=== PATIENT | female | born 1985 | race Hispanic/Latino ===

== ENCOUNTER 2022-05-08 19:14 | Emergency (ER) | payer MEDICAID ==
[2022-05-08] MEDS ORDERED: Sodium Chloride 0.9% 1000 ML 1,000 ML IV STA (20:08)
[2022-05-08 20:12] VITALS: O2SAT 100
[2022-05-08 20:18] LABS: Appearance SLIGHTLY CLOUDY (CLEAR)
[2022-05-08 20:19] LABS: Bilirubin NEGATIVE (NEGATIVE); Dipstick done @ ? MAIN LAB; Glucose NEGATIVE (NEGATIVE); Ketones NEGATIVE (NEGATIVE); Nitrite NEGATIVE (NEGATIVE); Ph 8.5 (5-6); Protein,Urine Dip TRACE (Negative); RBC LARGE Ery/ul (0-5); Urobilinogen 0.2 mg/dL (0-1)
[2022-05-08] MEDS ORDERED: Sodium Chloride 0.9% 1000 ML 1,000 ML ONE (20:19)
--- NOTE | 2022-05-08 20:20 | ERPHSYRPT ---
- History of Present Illness Time Seen by Provider: 05/08/22 20:10 Historian: patient, family, production superintendent hydro Patient Subjective Stated Complaint: pt states bleeding for 7 days Triage Nursing Assessment: pt ambulated into the er; pt is axo x4; c/o vaginal bleeding; pt states 2/10 pain to lower abd; hyperactive bowel sounds in all quads; vitals wnl; denies N/V/D Physician History: Patient is a 36-year-old female who presents with her daughter who acts as production superintendent hydro who presents with a complaint of vaginal bleeding and passage of clots for 7 days. Her control method consist of Depo shot. She is due in 2 months for another shot and bleeding is been very unusual for her Timing/Duration: day(s) (7) Activities at Onset: none Quality: cramping Pain Radiation: no radiation Severity of Pain-Max: moderate Severity of Pain-Current: moderate Previous symptoms: no prior history Allergies/Adverse Reactions: No Known Drug Allergies Allergy (Unverified 05/08/22 19:58) Home Medications: No Reportable Medications [No Reported Medications] 05/08/22 [History] Hx Tetanus, Diphtheria Vaccination/Date Given: No (unknown) Hx Influenza Vaccination/Date Given: No Hx Pneumococcal Vaccination/Date Given: No Travel Risk - International Travel Have you traveled outside of the country in past 3 weeks: No - Coronavirus Screening Are you exhibiting any of the following symptoms?: Yes Symptoms: Fever Close contact with a COVID-19 positive Pt in past 14-21 Days: Yes - Vaccine Status Have you recieved a Covid-19 vaccination: No (unknown) Coat Baster: Unknown - Vaccination Dates Dates if Unknown: unknown - Review of Systems Constitutional: No Fever, No Chills Eyes: No Symptoms Ears, Nose, & Throat: No Symptoms Respiratory: No Cough, No Dyspnea Cardiac: No Chest Pain, No Edema, No Syncope Abdominal/Gastrointestinal: No Abdominal Pain, No Nausea, No Vomiting, No Diarrhea Genitourinary Symptoms: Vaginal Bleeding, No Dysuria Musculoskeletal: No Back Pain, No Neck Pain Skin: No Rash Neurological: No Dizziness, No Focal Weakness, No Sensory Changes Psychological: No Symptoms Endocrine: No Symptoms All Other Systems: Reviewed and Negative - Past Medical History Pertinent Past Medical History: No Neurological History: No Pertinent History ENT History: No Pertinent History Cardiac History: No Pertinent History Respiratory History: No Pertinent History Endocrine Medical History: No Pertinent History Musculoskeletal History: No Pertinent History GI Medical History: No Pertinent History History: No Pertinent History Psycho-Social History: No Pertinent History Female Reproductive Disorders: No Pertinent History - Past Surgical History Past Surgical History: No - Social History Smoking Status: Never smoker Exposure to second hand smoke: No Drug Use: none Patient Lives Alone: No - Female History Hx Now: No - Nursing Vital Signs Nursing Vital Signs: Initial Vital Signs Temperature 97.4 F 05/08/22 20:01 Pulse Rate 51 L 05/08/22 20:01 Respiratory Rate 18 05/08/22 20:01 Blood Pressure 105/62 05/08/22 20:01 O2 Sat by Pulse Oximetry 100 05/08/22 20:01 Pain Scale Pain Intensity 2 - Physical Exam General Appearance: no apparent distress, alert Eye Exam: PERRL/EOMI, eyes nml inspection Ears, Nose, Throat Exam: normal ENT inspection, pharynx normal, moist mucous membranes Neck Exam: normal inspection, non-tender, supple, full range of motion Respiratory Exam: normal breath sounds, lungs clear, No respiratory distress Cardiovascular Exam: regular rate/rhythm, normal heart sounds Gastrointestinal/Abdomen Exam: normal bowel sounds, tenderness (Tenderness in the suprapubic area), No mass, No guarding, No rebound Pelvic Exam: not done Rectal Exam: deferred Back Exam: normal inspection, normal range of motion, No CVA tenderness, No jocelyn tebral tenderness Extremity Exam: normal inspection, normal range of motion, pelvis stable Neurologic Exam: alert, oriented x 3, cooperative, normal mood/affect, nml cerebellar function, sensation nml, No motor deficits Skin Exam: normal color, warm, dry SpO2: 100 - Course Nursing assessment & vital signs reviewed: Yes - CT Exams Abdomen/Pelvis CT Interpretation: Other (CT showed moderate diffuse fecal stasis nonobstructing left renal punctate stone remaining all negative) Ordered Tests: Active Orders 24 hr Category Date Time Status IV Insertion STAT Care 05/08/22 20:08 Active ABDOMEN AND PELVIS W/0 CONTRAS [CT] Stat Exams 05/08/22 20:09 Taken AMYLASE Stat Lab 05/08/22 20:25 Completed CBC W DIFF Stat Lab 05/08/22 20:25 Completed CMP Stat Lab 05/08/22 20:25 Completed CULTURE,URINE Stat Lab 05/08/22 20:10 Received HCG,QUALITATIVE URINE Stat Lab 05/08/22 20:10 Completed LIPASE Stat Lab 05/08/22 20:25 Completed Lactic Acid Stat Lab 05/08/22 20:08 Completed UA W/RFX CULTURE Stat Lab 05/08/22 20:10 Completed Medication Summary Discontinued Medications Generic Name Dose Route Start Last Admin Trade Name Chhaya PRN Reason Stop Dose Admin Estrogens Conjugated 25 mg 05/08/22 21:38 Estrogens,Conjugated 25 Mg/Vial Ml IV 05/08/22 21:39 ONCE STA Sodium Chloride 1,000 mls @ 999 mls/hr 05/08/22 20:08 05/08/22 21:30 Sodium Chloride 0.9% 1000 Ml IV 05/08/22 21:08 Infused .Q1H1M STA Infusion Sodium Chloride Confirm 05/08/22 20:19 Sodium Chloride 0.9% 1000 Ml Administered 05/08/22 20:20 Dose 1,000 mls @ ud .ROUTE .K-MED ONE Lab/Rad Data: Laboratory Result Diagrams 05/08/22 20:25 05/08/22 20:25 Laboratory Results 05/08/22 05/08/22 05/08/22 Range/Units 20:25 20:25 20:10 WBC 5.3 (4.0-10.5) x10^3/uL RBC 3.52 L (4.1-5.4) x10^6/uL Hgb 7.9 L (12.0-16.0) g/dL Hct 26.4 L (35-47) % MCV 75.0 L (78-100) fL MCH 22.4 L (26-32) pg MCHC 29.9 L (32-36) g/dL RDW 15.8 H (11.5-14.0) % Plt Count 150 (150-450) x10^3/uL MPV 11.3 H (7.5-11.0) fL Gran % 42.3 (36.0-66.0) % Immature Gran % (Auto) 0.2 (0.00-0.4) % Nucleat RBC Rel Count 0.0 (0.00-0.1) % Eos # (Auto) 0.12 (0-0.5) x10^3/uL Immature Gran # (Auto) 0.01 (0.00-0.03) x10^3u/L Absolute Lymphs (auto) 2.44 (1.0-4.6) x10^3/uL Absolute Monos (auto) 0.46 (0.0-1.3) x10^3/uL Absolute Nucleated RBC 0.00 (0.00-0.01) x10^3u/L Lymphocytes % 46.1 H (24.0-44.0) % Monocytes % 8.7 (0.0-12.0) % Eosinophils % 2.3 (0.00-5.0) % Basophils % 0.4 (0.0-0.4) % Absolute Granulocytes 2.24 (1.4-6.9) x10^3/uL Basophils # 0.02 (0-0.4) x10^3/uL Sodium 134 L (137-145) mmol/L Potassium 3.9 (3.5-5.1) mmol/L Chloride 105 (98-107) mmol/L Carbon Dioxide 26 (22-30) mmol/L Anion Gap 7.7 (5-15) MEQ/L BUN 14 (7-17) mg/dL Creatinine 0.70 (0.52-1.04) mg/dL Estimated GFR > 60.0 ML/MIN Glucose 93 (74-106) mg/dL Lactic Acid (0.4-2.0) Calcium 8.6 (8.4-10.2) mg/dL Total Bilirubin 0.50 (0.2-1.3) mg/dL AST 28 (14-36) U/L ALT 17 (0-35) U/L Alkaline Phosphatase 63 (38-126) U/L Serum Total Protein 6.6 (6.3-8.2) g/dL Albumin 3.5 (3.5-5.0) g/dL Amylase 104 (30-110) U/L Lipase 239 (23-300) U/L Urinalys Dipstick Clnc MAIN LAB Urine Color PINK (YELLOW) Urine Appearance SLIGHTLY CLOUDY (CLEAR) Urine pH 8.5 (5-6) Ur Specific Pioneer 1.020 (1.005-1.025) POC Urine Protein Conf TRACE (Negative) Urine Ketones NEGATIVE (NEGATIVE) Urine Nitrite NEGATIVE (NEGATIVE) Urine Bilirubin NEGATIVE (NEGATIVE) Urine Urobilinogen 0.2 (0-1) mg/dL Urine Leukocytes NEGATIVE (NEGATIVE) Urine WBC (Auto) 0-2 (0-5) /HPF Urine RBC (Auto) >101 (0-2) /HPF U Epithel Cells (Auto) NONE (FEW) /HPF Urine Bacteria (Auto) NONE (NEGATIVE) /HPF Urine RBC LARGE (0-5) Ajit/ul Urine Mucus (Auto) SLIGHT (NEGATIVE) /HPF Ur Culture Indicated? YES Urine Glucose NEGATIVE (NEGATIVE) mg/dL Urine HCG, Qual (Negative) 05/08/22 05/08/22 Range/Units 20:10 20:08 WBC (4.0-10.5) x10^3/uL RBC (4.1-5.4) x10^6/uL Hgb (12.0-16.0) g/dL Hct (35-47) % MCV (78-100) fL MCH (26-32) pg MCHC (32-36) g/dL RDW (11.5-14.0) % Plt Count (150-450) x10^3/uL MPV (7.5-11.0) fL Gran % (36.0-66.0) % Immature Gran % (Auto) (0.00-0.4) % Nucleat RBC Rel Count (0.00-0.1) % Eos # (Auto) (0-0.5) x10^3/uL Immature Gran # (Auto) (0.00-0.03) x10^3u/L Absolute Lymphs (auto) (1.0-4.6) x10^3/uL Absolute Monos (auto) (0.0-1.3) x10^3/uL Absolute Nucleated RBC (0.00-0.01) x10^3u/L Lymphocytes % (24.0-44.0) % Monocytes % (0.0-12.0) % Eosinophils % (0.00-5.0) % Basophils % (0.0-0.4) % Absolute Granulocytes (1.4-6.9) x10^3/uL Basophils # (0-0.4) x10^3/uL Sodium (137-145) mmol/L Potassium (3.5-5.1) mmol/L Chloride (98-107) mmol/L Carbon Dioxide (22-30) mmol/L Anion Gap (5-15) MEQ/L BUN (7-17) mg/dL Creatinine (0.52-1.04) mg/dL Estimated GFR ML/MIN Glucose (74-106) mg/dL Lactic Acid 0.8 (0.4-2.0) Calcium (8.4-10.2) mg/dL Total Bilirubin (0.2-1.3) mg/dL AST (14-36) U/L ALT (0-35) U/L Alkaline Phosphatase (38-126) U/L Serum Total Protein (6.3-8.2) g/dL Albumin (3.5-5.0) g/dL Amylase (30-110) U/L Lipase (23-300) U/L Urinalys Dipstick Clnc Urine Color (YELLOW) Urine Appearance (CLEAR) Urine pH (5-6) Ur Specific Pioneer (1.005-1.025) POC Urine Protein Conf (Negative) Urine Ketones (NEGATIVE) Urine Nitrite (NEGATIVE) Urine Bilirubin (NEGATIVE) Urine Urobilinogen (0-1) mg/dL Urine Leukocytes (NEGATIVE) Urine WBC (Auto) (0-5) /HPF Urine RBC (Auto) (0-2) /HPF U Epithel Cells (Auto) (FEW) /HPF Urine Bacteria (Auto) (NEGATIVE) /HPF Urine RBC (0-5) Ajit/ul Urine Mucus (Auto) (NEGATIVE) /HPF Ur Culture Indicated? Urine Glucose (NEGATIVE) mg/dL Urine HCG, Qual NEGATIVE (Negative) - Progress Progress: unchanged - Departure Departure Disposition: Home Clinical Impression: Menorrhagia Condition: Stable Critical Care Time: No Referrals: DOCTOR,NO FAMILY [Primary Care Provider] - Follow up/PCP as directed Instructions: Heavy Periods (DC) Additional Instructions: Patient will be given the phone number for Dr. Juan meza so that she can get an appointment with him.
[2022-05-08 20:24] LABS: Mucus SLIGHT /HPF (NEGATIVE); RBC >101 /HPF (0-2); Urine Cultured Indicated? YES; WBC 0-2 /HPF (0-5)
[2022-05-08 20:32] LABS: Absolute Neutrophil Ct (ANC) 2.24 x10^3/uL (1.4-6.9); Basophil (Absolute #) 0.02 x10^3/uL (0-0.4); Eosinophil % 2.3 % (0.00-5.0); Eosinophil (Absolute #) 0.12 x10^3/uL (0-0.5); Hematocrit 26.4 % (35-47); Hemoglobin 7.9 g/dL (12.0-16.0); Lymphocyte (Absolute #) 2.44 x10^3/uL (1.0-4.6); Lymphocytes % 46.1 % (24.0-44.0); Mean Corpuscular Hemoglobin 22.4 pg (26-32); Mean Corpuscular Hgb Concent. 29.9 g/dL (32-36); Mean Platelet Volume 11.3 fL (7.5-11.0); Monocyte (Absolute #) 0.46 x10^3/uL (0.0-1.3); Monocytes % 8.7 % (0.0-12.0); Neutrophil % 42.3 % (36.0-66.0); Platelet Count 150 x10^3/uL (150-450); Red Blood Count 3.52 x10^6/uL (4.1-5.4); Red Cell Distribution Width 15.8 % (11.5-14.0); White Blood Count 5.3 x10^3/uL (4.0-10.5)
[2022-05-08 20:50] LABS: ALBUMIN 3.5 g/dL (3.5-5.0); ALKALINE PHOSPHATASE 63 U/L (38-126); AMYLASE 104 U/L (30-110); ANION GAP 7.7 MEQ/L (5-15); BLOOD UREA NITROGEN 14 mg/dL (7-17); CHLORIDE 105 mmol/L (98-107); Calcium 8.6 mg/dL (8.4-10.2); Carbon Dioxide 26 mmol/L (22-30); EST GLOMERULAR FILTRATION RATE > 60.0 ML/MIN; Glucose 93 mg/dL (74-106); LIPASE 239 U/L (23-300); Potassium 3.9 mmol/L (3.5-5.1); SGOT/AST 28 U/L (14-36); SGPT/ALT 17 U/L (0-35); SODIUM 134 mmol/L (137-145); Total Protein 6.6 g/dL (6.3-8.2)
[2022-05-08 21:16] VITALS: BP 104/51; PULSE 48
[2022-05-08] MEDS ORDERED: PREMARIN 25 MG IV STA (21:38)
--- NOTE | 2022-05-09 09:37 | XRAY ---
Indication: Abdomen pain. Heavy uterine bleeding. Multiple contiguous axial images obtained through the abdomen and pelvis without contrast. Impression: None Lung bases clear. Heart not enlarged. Stomach is distended with food. Noncontrasted stomach and bowel loops appear nonobstructed with normal appendix. There is moderate diffuse scattered colonic fecal debris greatest in the right hemicolon with mild rectal impaction. Left kidney demonstrates nonobstructing punctate calculus. Posterior inferior uterus demonstrates 5 mm calcified fibroid. Previous cholecystotomy. No free fluid/air. Remaining liver, pancreas, spleen, adrenal glands, kidneys, ureters, bladder, uterus, and aorta are unremarkable for noncontrast exam. Osseous structures intact. No ventral or inguinal hernias. Impression: 1. Diffuse fecal stasis with mild rectal impaction. 2. Incidental nonobstructing left renal punctate calculus and subcentimeter uterine calcified fibroid. 3. Remaining CT abdomen/pelvis without contrast exam is negative.
== END 2022-05-08 22:02 | disposition home or self-care (01) ==
LOC: ED 19:14
DX: N92.0 Excessive and frequent menstruation with regular cycle (principal)
CPT/HCPCS: 36000; 36415; 74176; 80053; 81015; 81025; 82150; 83605; 83690; 85025; 87086; 96360; 96374; 99284